=== PATIENT | female | born 1970 | race Hispanic/Latino ===

== ENCOUNTER 2020-04-17 09:47 | Day surgery (SDC) | payer BC, OTHER ==
[2020-04-16 11:37] LABS: Hemoglobin 10.2 g/dL (12.0-16.0); Mean Corpuscular HGB CONC 30.3 g/dL (32.0-36.0); Mean Corpuscular Hemoglobin 23.3 pg (27.0-31.0); Mean Platelet Volume 8.8 fL (7.4-10.4); Platelet Count 319 thou/uL (130-400); RBC Distribution Width 19.9 % (11.5-14.5); Red Blood Cell (RBC) Count 4.38 mill/uL (4.20-5.40); White Blood Cell (WBC) Count 9.5 thou/uL (4.8-10.8)
[2020-04-16 11:56] LABS: BHCG - Serum Negative (NEGATIVE); Pregs Control Background? CLEAR/WHITE (CLR/WHITE); Pregs Control Bar Appear? YES (CONTROL BAR)
[2020-04-16 12:45] LABS: ALT (SGPT) 11 U/L (8-55); AST (SGOT) 12 U/L (5-34); Alkaline Phosphatase 77 U/L (40-110); Bilirubin, Direct 0.3 mg/dL (0.1-0.3); Bilirubin, Total 0.5 mg/dL (0.2-1.2)
[2020-04-17] MEDS ORDERED: Bupivacaine PF 0.5% 30 ML VIAL ONE (10:28)
[2020-04-17] MEDS ORDERED: Lidocaine 1% w/Epinephrine 1:100K 20 ML VIAL ONE (10:28)
[2020-04-17] MEDS ORDERED: Rocuronium Bromide 10 MG/ML (10ML VIAL) ONE (10:53)
[2020-04-17] MEDS ORDERED: Lidocaine 1% PF 5 ML VIAL ONE (10:53)
[2020-04-17] MEDS ORDERED: PROPOFOL 200 MG/20 ML VIAL ONE (10:53)
[2020-04-17] MEDS ORDERED: Glycopyrrolate 0.2 MG/ML 5 ML SYRINGE ONE (10:53)
[2020-04-17] MEDS ORDERED: Ondansetron PF 4 MG/2 ML Vial ONE (10:53)
[2020-04-17] MEDS ORDERED: Succinylcholine Chloride 20 MG/ML 10 ml SYRINGE FS ONE (10:53)
[2020-04-17] MEDS ORDERED: Gabapentin 300 MG CAP ONE (11:06)
[2020-04-17] MEDS ORDERED: CeleCOXIB 100 MG CAP ONE (11:06)
[2020-04-17] MEDS ORDERED: Famotidine/PF 20 mg/2ml Vial ONE (11:07)
[2020-04-17] MEDS ORDERED: Lidocaine 2% Jelly 5 ML TUBE ONE (11:20)
[2020-04-17] MEDS ORDERED: Fentanyl 100 MCG/2 ML VIAL ONE ×2 (11:20→14:48)
[2020-04-17] MEDS ORDERED: Promethazine HCl 25 MG/ML VIAL IM PRN ×2 (14:34→14:52)
[2020-04-17] MEDS ORDERED: Ondansetron HCl/PF 4 MG/2 ML Vial IVP PRN (14:34)
[2020-04-17] MEDS ORDERED: Promethazine HCl 25 MG/ML VIAL SLOW IVP PRN (14:34)
[2020-04-17] MEDS ORDERED: Ondansetron PF 4 MG/2 ML Vial IVP PRN (14:52)
[2020-04-17] MEDS ORDERED: Simethicone Chewable 80 MG TAB PO PRN (14:52)
[2020-04-17] MEDS ORDERED: diphenhydrAMINE 25 MG CAP PO PRN (14:52)
[2020-04-17] MEDS ORDERED: Morphine 4 MG/ML VIAL SLOW IVP PRN (14:52)
[2020-04-17] MEDS ORDERED: HYDROcodone/Acetaminophen 5/325 mg Tablet PO PRN (14:52)
[2020-04-17] MEDS ORDERED: Zolpidem Tartrate 5 MG TAB PO PRN (14:52)
[2020-04-17] MEDS ORDERED: Bisacodyl 10 MG SUPP PR PRN (14:52)
[2020-04-17] MEDS: Sodium Chloride 0.9% 1,000 ML IV SCH (16:38)
[2020-04-17] MEDS: Dextrose 5 %-0.45 % NaCl 1,000 ML IV SCH ×2 (16:38→22:52)
[2020-04-17] MEDS: Ketorolac Tromethamine 30 MG/ML VIAL IVP SCH ×2 (18:26→23:55)
--- NOTE | 2020-04-17 20:25 | OP ---
DATE OF PROCEDURE: 04/17/2020 PREOPERATIVE DIAGNOSES: Fibroids, menorrhagia, and anemia. POSTOPERATIVE DIAGNOSES: Fibroids, menorrhagia, and anemia. PROCEDURES PERFORMED: Robotic-assisted total laparoscopic hysterectomy and bilateral salpingectomy and ExCITE. CYLINDER BATCHER: Jennifer Crespo PA-C COMPLICATIONS: None. ESTIMATED BLOOD LOSS: 50 mL. ANESTHESIA: GETA. OPERATIVE FINDINGS: 1. Enlarged fibroid uterus with multiple large fibroids extending from the uterine serosa. Multiple small intramural fibroids. Normal-appearing fallopian tubes and ovaries bilaterally. 2. Hemostatic vaginal cuff. 3. Normal vaginal mucosa. DESCRIPTION OF PROCEDURE: The patient was taken back to the OR with IV fluids running. When she was in the OR, she was placed in dorsal supine position and general anesthesia was obtained. Once the patient was asleep, she was placed in low dorsal lithotomy position and the abdomen and vagina were prepped and draped in normal fashion for gynecologic surgery. Martino catheter was placed into the bladder and attached to a Sheree syringe. An operative speculum was placed in the vagina, and a single-tooth tenaculum was used to grasp the anterior lip of the cervix and the uterus sounded to 10 cm. A [employer] manipulator with 10 cm tip and a 4 cm cup was assembled and placed into the uterus and vagina in routine fashion. Surgeon's gloves were then changed, and attention was turned to the laparoscopic portion of the case. Beginning at the supraumbilical fold, local anesthesia was injected underneath the skin. A 12 mm skin incision was made with a scalpel. A Veress needle was placed through this incision, and the abdomen was insufflated without difficulty. The Veress needle was removed, and a 12 mm trocar was placed through the distended abdomen. Next, three laparoscopic ports were placed in right and left lower quadrant, right upper quadrant port using similar technique under direct visualization. Next, the robot was docked to the patient's bedside and the instruments were placed through the ports under direct visualization. Beginning on the patient's left side, the left fallopian tube was elevated, cauterized, and transected. The left IP ligament was cauterized and transected allowing the left ovary to fall away to the pelvic sidewall. The round ligament on the patient's left side was cauterized, transected, and divided into anterior and posterior leaves. The round ligament was dissected down towards the level of the uterine artery, which was then skeletonized. The anterior leaf of the broad ligament was taken down towards the level of the cervix, and the bladder flap was created from the patient's left side. The uterine artery was cauterized and transected as well as multiple small vessels along the cervix. Attention was then turned to the right side, where the right fallopian tube was cauterized, transected, and removed. The right utero-ovarian ligament was cauterized and transected. The round ligament on the patient's right side was cauterized, transected, and divided into the anterior and posterior leaves. The uterine artery was skeletonized on the patient's right side, and the bladder flap was completed from the right side to the left. The vesicouterine fascia was then dissected off the cervix, and the bladder was dissected away from the planned hysterotomy site. The uterine artery on the patient's right side, and tributary vessels were cauterized and transected. The colpotomy was then performed circumferentially using monopolar scissors. An attempt was made to retract the uterus through the vagina, but the specimen was noted to be too largely an irregularly-shaped and it would not easily fit through the vaginal opening. At this time, the decision was made to place a bag retrieval system and convert to an extracorporeal morcellation technique for removal of the fibroid uterus specimen. The surgeon was then re-gowned and gloved and moved from the robotic console to the abdomen. The robotic instruments were removed, and the arms were undocked from the port sites. The supraumbilical port site was extended to approximately 2.5 cm. After this was done, the GelPOINT Mini retractor was placed through this supraumbilical incision. A sterile retrieval bag was then placed into the abdomen through this port. The GelPort cap was placed. The abdomen was redistended with CO2, and the robotic arms were again docked, and the instruments were placed under direct visualization. Surgeon returned to the console. The specimen was placed into the laparoscopic bag. The vaginal cuff was closed using Stratafix suture in a running fashion in 2 layers. Also, prior to completing the procedure and beginning the ExCITE portion of the procedure, the pelvis was copiously irrigated and suctioned dry. It was dropped to 4 mmHg and no areas of bleeding were noted. Once hemostasis was assured and irrigation was complete, the specimen was placed into the bag and brought through the supraumbilical site. The ports were removed. The instrument and sponge initial count were correct. The specimen was brought up through the supraumbilical site contained in a laparoscopic bag. It was then morcellated using a coring technique for approximately the next 10 minutes. Once the specimen was completely removed from the bag, the bag and GelPOINT retractor were removed. All four port sites were cleaned and dried. No areas of bleeding were noted. The supraumbilical fascia was closed with Vicryl suture. All four skin incisions were closed with Monocryl suture and dressed with Dermabond dressing. At the end of the case, the vagina was inspected with no bleeding noted. The patient tolerated the procedure well. Job ID: [id number]
[2020-04-18] MEDS: Sodium Chloride 0.9% 1,000 ML IV SCH ×2 (00:10→07:02)
[2020-04-18] MEDS: HYDROcodone/Acetaminophen 5/325 mg Tablet PO PRN ×2 (04:27→09:40)
[2020-04-18] MEDS: Dextrose 5 %-0.45 % NaCl 1,000 ML IV SCH (07:01)
[2020-04-18] MEDS: Ketorolac Tromethamine 30 MG/ML VIAL IVP SCH ×2 (07:02→07:46)
[2020-04-18 08:13] VITALS: BP 110/56; TEMP 98.7
--- NOTE | 2020-04-18 08:38 | PDOC.EVN ---
Event Note - Event Note Event Note: POD 1 and discharge note S: doing well, minimal discomfort across abdomen, tolerating PO, ambulating in the hallways, no bleeding, urinating well O: VS WNL GEN NAD A and O Abd: incisions CDI x 4, nondistended Oumou-dry Ext: no cords A/P: POD 1 sp CECELIA NICHOLE, post op goals met, DC this AM. [facility] 2 and 6 weeks Meds sent to pharmacy and post op pain med use reviewed
[2020-04-22] MEDS ORDERED: Ibuprofen 800 MG TAB PO SCH (22:00)
== END 2020-04-18 10:23 | disposition home or self-care (01) ==
LOC: SDC 09:47 → 3SW 14:52 → SDC 04-18 10:23
PROVIDERS: ATTEND Obstetrics & Gynecology
DX: D25.1 Intramural leiomyoma of uterus (principal); N80.0 Endometriosis of uterus; N83.8 Other noninflammatory disorders of ovary, fallopian tube and broad ligament; D64.9 Anemia, unspecified; F17.200 Nicotine dependence, unspecified, uncomplicated; E66.9 Obesity, unspecified; Z79.52 Long term (current) use of systemic steroids; Z79.899 Other long term (current) drug therapy
CPT/HCPCS: 36415; 80076; 84703; 85027; 86850; 86900; 86901; 87635; 88307; J0690; J1885; J2001; J2405; J2704; J3010; S0020; S0028; U0003